=== PATIENT | female | born 1985 | race Asian ===

== ENCOUNTER 2017-07-12 00:05 | Inpatient (IN) | payer SELFPAY ==
[~2017-07-12] VITALS: Ht 167.6 cm; Wt 85.7 kg
[2017-07-12] MEDS ORDERED: CITRIC ACID/SODIUM CITRATE 30 ML UDC PO ONE (02:20)
[2017-07-12] MEDS ORDERED: LACTATED RINGERS 1,000 ML IV SCH (02:20)
[2017-07-12 03:21] LABS: HEMATOCRIT 35.3 % (36-48); HEMOGLOBIN 11.7 g/dL (12.0-16.0); MEAN CORPUSCULAR HEMOGLOBIN 32 pg (27-31); MEAN CORPUSCULAR HGB CONC 33 g/dL (33-37); MEAN CORPUSCULAR VOLUME 98 fL (80-94); PLATELET COUNT (AUTO) 203 K/uL (140-450); RED BLOOD CELL COUNT(AUTO) 3.62 MIL/uL (4.20-5.40); RED CELL DISTRIBUTION WIDTH 12.7 % (11.6-13.7); WHITE BLOOD COUNT (AUTO) 9.3 K/uL (4.8-10.8)
[2017-07-12 03:24] LABS: APPEARANCE,URINE SL CLOUDY (CLEAR); BILIRUBIN,URINE NEGATIVE (NEGATIVE); BLOOD, URINE TRACE-L (NEGATIVE); COLOR,URINE YELLOW (YELLOW); LEUKOCYTE ESTERASE ,URINE 1+ (NEGATIVE); NITRITE, URINE NEGATIVE (NEGATIVE); UGLUCOSE NEGATIVE (NEGATIVE)
[2017-07-12 04:16] LABS: ALBUMIN 2.6 g/dL (3.4-5.0); CARBON DIOXIDE 21.9 mmol/L (21-32); CREATININE 0.5 mg/dL (0.6-1.3); POTASSIUM 3.9 mmol/L (3.5-5.1); TOTAL BILIRUBIN 0.2 mg/dL (0.0-1.0)
[2017-07-12 04:17] LABS: EOSINOPHILS % (MANUAL) 3 % (0-4); LYMPHOCYTES % (MANUAL) 30 % (20-46); MONOCYTES % (MANUAL) 8 % (5-12)
[2017-07-12 04:25] VITALS: BP 108/67
[2017-07-12 04:52] LABS: RBC,URINE 0-5 (RARE) /HPF (0-5)
[2017-07-12] MEDS ORDERED: ceFAZolin 1,000 MG VIAL ONE (05:51)
[2017-07-12] MEDS ORDERED: IBUPROFEN 800 MG TAB PO PRN (06:35)
[2017-07-12] MEDS ORDERED: HYDROcodone/APAP 5/325 MG 1 TAB TAB PO PRN (06:35)
[2017-07-12] MEDS ORDERED: TEMAZEPAM 15 MG CAP PO PRN (06:35)
[2017-07-12] MEDS ORDERED: oxyCODONE/APAP 5/325 MG 1 TAB TAB PO PRN (06:35)
[2017-07-12] MEDS ORDERED: TRIMETHOBENZAMIDE 200 MG/2 ML SYR IM PRN (06:35)
[2017-07-12] MEDS ORDERED: METHYLERGONOVINE 0.2 MG/ML AMP IM PRN (06:35)
[2017-07-12] MEDS ORDERED: SIMETHICONE 80 MG TAB.CHEW PO PRN (06:35)
[2017-07-12] MEDS ORDERED: MEASLES, MUMPS, AND RUBELLA 1 VIAL SQVAC PRN (06:35)
[2017-07-12] MEDS ORDERED: OXYTOCIN 10 UNITS/ML VIAL ONE (06:51)
[2017-07-12] MEDS ORDERED: TRIAMCINOLONE 10 MG/ML 5ML VIAL ONE (06:52)
[2017-07-12] MEDS ORDERED: BUPIVACAINE-MPF 0.75% 10 ML VIAL INJ ONE (06:55)
[2017-07-12] MEDS ORDERED: MIDAZOLAM 2 MG/2 ML VIAL ONE (06:57)
[2017-07-12] MEDS ORDERED: MORPHINE PRES FREE 10 MG/10 ML AMP IV ONE (06:57)
--- NOTE | 2017-07-12 07:22 | NUR ---
9/8 NO ILL EFFECTS NOTED
[2017-07-12] MEDS ORDERED: OXYTOCIN 20 UNITS in LACTATED RINGERS 1,000 ML IV SCH (07:27)
[2017-07-12] MEDS ORDERED: NALOXONE 0.4 MG/ML VIAL IVP PRN ×3 (07:30)
[2017-07-12] MEDS ORDERED: MEPERIDINE 25 MG/ML SYR IVP PRN (07:30)
[2017-07-12] MEDS ORDERED: diphenhydrAMINE 50 MG/ML VIAL IVP PRN ×2 (07:30)
[2017-07-12] MEDS ORDERED: ONDANSETRON 4 MG/2 ML VIAL IVP PRN ×2 (07:30)
[2017-07-12] MEDS ORDERED: NALBUPHINE 10 MG/ML AMP IVP PRN (07:30)
[2017-07-12] MEDS ORDERED: HYDROmorphone PFS 2 MG/ML SYR IVP PRN (07:30)
[2017-07-12] MEDS ORDERED: PNV11TAB PO (07:37)
[2017-07-12] MEDS ORDERED: FERR-252 PO (07:37)
[2017-07-12] MEDS ORDERED: diphenhydrAMINE 50 MG/ML VIAL ONE (08:02)
[2017-07-12] MEDS ORDERED: OXYTOCIN 20 UNITS/LR PREMIX 1,000 ML IV ONE (08:02)
[2017-07-12] MEDS ORDERED: ONDANSETRON 4 MG/2 ML VIAL ONE (08:12)
--- NOTE | 2017-07-12 09:04 | NUR ---
PATIENT HAS BEEN SCREENED AND CATEGORIZED LOW NUTRITION RISK. PATIENT WILL BE SEEN WITHIN 7 DAYS OF ADMISSION. 07/18/[address]
[2017-07-12 11:39] LABS: RAPID PLASMA REAGIN NON-REACTIVE (Non Reactiv)
[2017-07-12] MEDS ORDERED: KETOROLAC 30 MG/ML VIAL IM/IVP SCH (12:00)
[2017-07-12] MEDS: OXYTOCIN 20 UNITS in LACTATED RINGERS 1,000 ML IV SCH (16:19)
[2017-07-12] MEDS: DOCUSATE SOD/SENNA 50/8.6 MG 1 TAB PO SCH (21:36)
[2017-07-13] MEDS: OXYTOCIN 20 UNITS in LACTATED RINGERS 1,000 ML IV SCH (00:57)
[2017-07-13 06:48] LABS: BASOPHILS % (AUTO) 0.3 % (0.0-2.0); EOSINOPHILS % (AUTO) 0.4 % (0.0-4.0); HEMATOCRIT 33.2 % (36-48); HEMOGLOBIN 11.1 g/dL (12.0-16.0); LYMPHOCYTES # (AUTO) 1.2 K/uL (2.5-16.5); LYMPHOCYTES % (AUTO) 11.5 % (20.5-51.1); MEAN CORPUSCULAR HEMOGLOBIN 33 pg (27-31); MEAN CORPUSCULAR HGB CONC 34 g/dL (33-37); MEAN CORPUSCULAR VOLUME 97 fL (80-94); MONOCYTES # (AUTO) 0.8 K/uL (0.8-1.0); MONOCYTES % (AUTO) 7.2 % (1.7-9.3); NEUTROPHILS # (AUTO) 8.8 K/uL (1.8-7.7); NEUTROPHILS % (AUTO) 80.6 % (42.2-75.2); PLATELET COUNT (AUTO) 180 K/uL (140-450); RED BLOOD CELL COUNT(AUTO) 3.41 MIL/uL (4.20-5.40); RED CELL DISTRIBUTION WIDTH 12.5 % (11.6-13.7); WHITE BLOOD COUNT (AUTO) 10.8 K/uL (4.8-10.8)
[2017-07-13] MEDS: DOCUSATE SOD/SENNA 50/8.6 MG 1 TAB PO SCH (21:38)
[2017-07-14] MEDS: DOCUSATE SOD/SENNA 50/8.6 MG 1 TAB PO SCH (20:44)
== END 2017-07-15 15:00 | disposition home or self-care (01) | DRG 766 ==
LOC: MFCC 00:05
PROVIDERS: ADMIT Obstetrics & Gynecology; ATTEND Obstetrics & Gynecology
PROC: 10D00Z1 Extraction of Products of Conception, Low, Open Approach (ICD-10-PCS; principal; 2017-07-12 06:00)
DX: O82 Encounter for cesarean delivery without indication (principal); Z37.0 Single live birth; Z3A.39 39 weeks gestation of pregnancy
CPT/HCPCS: 36415; 80053; 81001; 85025; 86592; 86886; 86900; 86901; 87086; J0690; J1200; J2250; J2270; J2405; J2590; J3301; J3490; J7120